=== PATIENT | female | born 1955 | race Caucasian/White ===

== ENCOUNTER 2016-07-18 18:09 | Inpatient (IN) | payer OTHER ==
[~2016-07-18] VITALS: Ht 152.4 cm; Wt 89.2 kg
[~2016-07-18 18:09] MED LIST: BUPR150T6 PO; CITA-73 PO; IBUP200T76; LAMO100T44 PO; LEVOTHYROXINE; METO25TA3 PO; NAPR-607 PO; NOR10T GT; QUET200T30 PO; RABE20TA5 PO; TIZA4CAP7 PO; [UNRECOGNIZED DRUG - CODE] PO
[2016-07-18 19:09] LABS: Basophils # (auto) 0 uL; Basophils % (auto) 0.5 % (0.0-2.0); Eosinophils # (auto) 0.2 uL; Eosinophils % (auto) 1.8 % (0.0-7.0); Hematocrit 41.4 % (36.0-46.0); Hemoglobin 14.1 g/dL (12.2-16.2); Lymphocytes # (auto) 1.6 uL; Lymphocytes % (auto) 17.4 % (10.0-50.0); Mean Corpuscular Hemoglobin 29.8 pg (28.0-32.0); Mean Corpuscular Volume 87.7 fL (80.0-100.0); Monocytes # (auto) 0.7 uL; Monocytes % (auto) 7.3 % (0.0-12.0); Neutrophils # (auto) 6.7 uL; Platelet Count (auto) 270 10^3/uL (140-450); Red Cell Distribution Width 13.2 % (11.6-16.0); White Blood Cell 9.2 10^3/uL (4.4-10.8)
[2016-07-18 19:25] LABS: Albumin 3.5 g/dL (3.4-5.0); BUN/Creatinine Ratio 13.1; Calcium 8.4 mg/dL (8.5-10.1)
[2016-07-18 19:28] LABS: Bilirubin, Total 0.4 mg/dL (0.2-1.0); Total Protein 7.5 g/dL (6.4-8.2)
[2016-07-18] MEDS ORDERED: SODIUM CHLORIDE 0.9% 1,000 ML IVB ONE (19:44)
[2016-07-18] MEDS ORDERED: GLUCAGON HYDROCHLORIDE (RDNA) 1 MG VIAL IV ONE (19:45)
[2016-07-18 20:07] LABS: INR 1.05 (0.9-1.15); Partial Thromboplastin Time 27.3 sec (22.64-33.71); Prothrombin Time 10.8 sec (9.37-12.3)
[2016-07-18 20:08] LABS: Magnesium 2.3 mg/dL (1.6-2.6)
[2016-07-18 20:38] LABS: B-Type Natriuretic Peptide 65.85 pg/mL (0-100)
[2016-07-18] MEDS ORDERED: ACETAMINOPHEN/CODEINE#3 (300/30mg) TAB PO ONE (20:45)
[2016-07-18 20:46] LABS: Temperature: 22.3 C (20.0-25.0)
[2016-07-19] VITALS (7 sets, daily range): BP systolic 100–158; BP diastolic 53–85
[2016-07-19] MEDS ORDERED: ASPirin 325 MG TAB PO ONE
[2016-07-19] MEDS ORDERED: SODIUM CHLORIDE 0.9% 1,000 ML IV SCH (02:35)
[2016-07-19] MEDS ORDERED: ONDANSETRON HCL 4 MG/2 ML VIAL IV PRN (02:45)
[2016-07-19] MEDS ORDERED: NITROGLYCERIN 0.4 MG SL TAB SL PRN (02:45)
[2016-07-19] MEDS ORDERED: ACETAMINOPHEN 325 MG TAB PO PRN ×2 (02:45→18:09)
[2016-07-19] MEDS ORDERED: MORPHINE SULF INJ 2 MG/ML SYRINGE 1ML IV PRN (02:45)
[2016-07-19] MEDS: HYDROcodone-ACET 5/325MG TAB PO PRN ×3 (03:37→16:41)
[2016-07-19] MEDS ORDERED: INFLUENZA QUAD 2016-2017 0.5 ML SYRG IM ONE (06:30)
[2016-07-19] MEDS ORDERED: ASPirin 81 mg TAB PO SCH (10:00)
[2016-07-19] MEDS ORDERED: ENOXAPARIN SOD 40 MG/0.4 ML SYRINGE SC SCH (10:00)
[2016-07-19] MEDS ORDERED: FLUoxetine HCL 20 MG CAP PO SCH (10:00)
[2016-07-19] MEDS: FAMOTIDINE 20 MG TAB PO SCH ×2 (10:38→21:19)
[2016-07-19] MEDS ORDERED: SODIUM CHLORIDE 0.9% 500 ML IV ONE (11:45)
[2016-07-19] MEDS: SODIUM CHLORIDE 0.9% 1,000 ML IV SCH ×2 (16:41→22:53)
[2016-07-19] MEDS ORDERED: CYANOCOBALAMIN (B-12) 1000 MCG/1 ML VIAL SUBCUT ONE (18:00)
[2016-07-19] MEDS ORDERED: IBUPROFEN 600 MG TAB PO PRN (18:00)
[2016-07-20 04:51] VITALS: BP 131/65
[2016-07-20 06:37] LABS: Basophils # (auto) 0 uL; Basophils % (auto) 0.4 % (0.0-2.0); Eosinophils # (auto) 0.2 uL; Eosinophils % (auto) 3.3 % (0.0-7.0); Hematocrit 35.6 % (36.0-46.0); Hemoglobin 12.1 g/dL (12.2-16.2); Lymphocytes # (auto) 1.2 uL; Mean Corpuscular Hemoglobin 29.7 pg (28.0-32.0); Mean Corpuscular Hgb Conc. 34.1 g/dL (32.0-36.0); Mean Corpuscular Volume 87.2 fL (80.0-100.0); Mean Platelet Volume 9.3 fL (7.4-10.4); Monocytes # (auto) 0.5 uL; Monocytes % (auto) 9.1 % (0.0-12.0); Neutrophils # (auto) 3.4 uL; Neutrophils % (auto) 64.2 % (37.0-80.0); Platelet Count (auto) 189 10^3/uL (140-450); Red Cell Distribution Width 12.7 % (11.6-16.0); White Blood Cell 5.2 10^3/uL (4.4-10.8)
[2016-07-20 06:45] LABS: Albumin 3.1 g/dL (3.4-5.0); Bilirubin, Total 0.4 mg/dL (0.2-1.0); Calcium 8.3 mg/dL (8.5-10.1); Magnesium 2.1 mg/dL (1.6-2.6); Potassium 4.1 mmol/L (3.5-5.1); Total Protein 6.7 g/dL (6.4-8.2)
[2016-07-20 07:42] VITALS: BP 131/65
[2016-07-20] MEDS ORDERED: INFLUENZA QUAD 2016-2017 0.5 ML SYRG IM ONE (08:00)
== END 2016-07-20 08:00 | disposition home or self-care (01) | DRG 684 ==
LOC: ER 18:10 → TELE 18:11 → TELE-WESTW 07-19 04:12
PROVIDERS: ADMIT Nurse Practitioner; ATTEND Family Medicine
DX: N17.9 Acute kidney failure, unspecified (principal); E86.0 Dehydration; F31.9 Bipolar disorder, unspecified; I95.9 Hypotension, unspecified; I12.9 Hypertensive chronic kidney disease with stage 1 through stage 4 chronic kidney disease, or unspecified chronic kidney disease; I45.81 Long QT syndrome; N18.2 Chronic kidney disease, stage 2 (mild); Z82.49 Family history of ischemic heart disease and other diseases of the circulatory system; Z79.899 Other long term (current) drug therapy; Z23 Encounter for immunization
CPT/HCPCS: 36415; 70450; 71010; 80053; 80061; 82607; 83735; 83880; 84439; 84443; 84481; 84484; 85025; 85610; 85730; 87040; 93005; 96361; 96374